=== PATIENT | female | born 1955 | race Caucasian/White ===

== ENCOUNTER 2017-01-13 16:39 | Emergency (ER) | payer OTHER ==
[~2017-01-13] VITALS: Ht 154.9 cm; Wt 94.0 kg
[2017-01-13] MEDS ORDERED: IBUPROFEN 600MG TABLET PO ONE (21:15)
[2017-01-13] MEDS ORDERED: HYDROCODONE/ACETAMINOPHEN 5/325MG TABLET PO ONE (21:15)
[2017-01-14 00:22] VITALS: BP 139/56
== END 2017-01-14 00:27 | disposition home or self-care (01) ==
LOC: ER 17:41
DX: S92.401A Displaced unspecified fracture of right great toe, initial encounter for closed fracture (principal); E11.9 Type 2 diabetes mellitus without complications; W19.XXXA Unspecified fall, initial encounter; Y93.89 Activity, other specified; Y92.89 Other specified places as the place of occurrence of the external cause; Y99.8 Other external cause status
CPT/HCPCS: 29515; 73630; 99284